=== PATIENT | male | born 1985 | race Caucasian/White ===

== ENCOUNTER 2016-05-20 15:54 | Emergency (ER) | payer OTHER ==
[~2016-05-20] VITALS: Ht 170.1 cm; Wt 74.8 kg
[~2016-05-20 15:54] MED LIST: AMBIEN10 M1 PO; AMOXICILLIN500 MG PO; ATARAX,VISTARIL50 MG PO; ATARAX25 MG PO; AUGMENTIN 875 M1 TAB PO; AUGMENTIN 875875 MG PO; CARBIDOPA/LEVOD1 TA1 PO; CATAFLAM50 MG PO; CLEOCIN HCL150 MG PO; CLINDAMYCIN HC300 MG PO; CLINDAMYCIN150 MG PO; CLINDAMYCIN300 MG PO; Cleocin150 MG PO; DAYPRO600 M1 PO; ELIMITE 5%60 GM PO; FLAGYL500 MG PO; HYDROCODONE BIT1 T11 PO; IBU-8800 MG PO; KEFLEX500 MG PO; LIDEX0.05% T; MEDROL DOSEPAK4 MG PO; MOTRIN800 MG PO; NAPROSYN500 MG PO; NKHM; PEN-VEE K500 MG PO; PENICILLIN V500 MG PO; PENICILLIN VK500 MG PO; PERCOCET 325 MG1 TA2 PO; PREDNISONE20 MG PO; SKELAXIN800 MG PO; TOBRADEX 0.1%-0.5 ML OPH; TRAMADOL HCL50 MG PO; TRAMADOL50 MG PO; TRAZODONE50 MG PO; ULTRAM50 MG PO; VICODIN 5/500 505 MG PO; VICODIN 500 MG-1 TAB PO; ZITHROMAX250 MG PO
[2016-05-20] MEDS ORDERED: PROAIR HFA8.5 GM INH (17:16)
== END 2016-05-20 17:38 | disposition home or self-care (01) ==
LOC: ED 15:54
DX: R05 Cough (principal); F12.10 Cannabis abuse, uncomplicated; F17.200 Nicotine dependence, unspecified, uncomplicated; Z88.1 Allergy status to other antibiotic agents; Z91.013 Allergy to seafood

== ENCOUNTER 2016-08-22 16:40 | Emergency (ER) | payer OTHER ==
[~2016-08-22] VITALS: Ht 170.1 cm; Wt 72.6 kg
[~2016-08-22 16:40] MED LIST changes: +PROAIR HFA8.5 GM INH
[2016-08-22] MEDS ORDERED: BUPRENORPHINE HY8 MG SL (16:53)
[2016-08-22] MEDS ORDERED: BACTRIM DS 8001 TA1 PO (18:01)
[2016-08-22] MEDS ORDERED: CLINDAMYCIN HC300 MG PO (18:09)
== END 2016-08-22 18:05 | disposition home or self-care (01) ==
LOC: ED 16:40
DX: S91.114A Laceration without foreign body of right lesser toe(s) without damage to nail, initial encounter (principal); F17.200 Nicotine dependence, unspecified, uncomplicated; Z88.1 Allergy status to other antibiotic agents; Z91.013 Allergy to seafood; W22.8XXA Striking against or struck by other objects, initial encounter; Y93.9 Activity, unspecified; Y92.9 Unspecified place or not applicable; Y99.9 Unspecified external cause status

== ENCOUNTER 2016-10-10 10:45 | Inpatient (IN) | payer OTHER ==
[~2016-10-10] VITALS: Ht 170.1 cm; Wt 70.8 kg
[~2016-10-10 10:45] MED LIST changes: +BACTRIM DS 8001 TA1 PO; +BUPRENORPHINE HY8 MG SL
[2016-10-10 12:00] VITALS: BP 104/64
[2016-10-10 12:46] LABS: BILIRUBIN NEGATIVE (NEGATIVE); BLOOD NEGATIVE (NEGATIVE); CLARITY CLEAR (CLEAR); COLOR YELLOW (YELLOW); GLUCOSE NEGATIVE (NEGATIVE); KETONE NEGATIVE (NEGATIVE); LEUKO ESTERASE NEGATIVE (NEGATIVE); NITRITE NEGATIVE (NEGATIVE); PH 6.5 (5.0-9.0); PROTEIN NEGATIVE (NEGATIVE); UROBILINOGEN 0.2 E.U./dl (0.2-1.0)
[2016-10-10 12:48] LABS: BASO % 0.4 % (0.0-1.0); EOS # 0.1 10*3/uL (0.0-0.4); EOS % 1.1 % (1.0-4.0); HEMATOCRIT 44.6 % (42.0-52.0); HEMOGLOBIN 14.9 g/dl (14.0-18.0); IG # 0.1 10*3/uL (0.0-0.1); LYMPH # 2.2 10*3/uL (1.3-4.4); LYMPH % 24.4 % (27.0-41.0); MEAN CELL VOLUME 88.8 fl (80.0-94.0); MEAN CORPUSCULAR HGB 29.7 pg (27.0-31.0); MEAN CORPUSCULAR HGB CONC 33.4 g/dl (33.0-37.0); MEAN PLATELET VOLUME 9.2 fl (9.6-12.3); MONO # 0.5 10*3/uL (0.1-1.0); MONO % 5.6 % (3.0-9.0); NEUT # 6.1 10*3/uL (2.3-7.9); NEUT % 67.8 % (47.0-73.0); PLATELET COUNT AUTOMATED 296 10*3/uL (130-400); RED BLOOD COUNT 5.02 10*6/uL (4.50-5.90); RED CELL DISTRI WIDTH 13.7 % (0-14.5); WHITE BLOOD COUNT 9.1 10*3/uL (4.8-10.8)
[2016-10-10 12:54] LABS: URINE AMPHETAMINES < 1000 (1000ng/ml); URINE BARBITURATES < 200 (200ng/ml); URINE COCAINE > 300 (300ng/ml)
[2016-10-10 12:55] LABS: PROTHROMBIN TIME 10.7 SECONDS (9.0-12.4)
[2016-10-10 13:01] LABS: BACTERIA 1+; MUCOUS 2+; RBC 0-2 rbc/hpf (0-2); URINE REFLEX COMMENT NO (NO)
[2016-10-10 13:04] LABS: ALBUMIN 3.6 gm/dl (3.1-4.5); ALKALINE PHOSPHATASE 72 U/L (45-117); BILIRUBIN, TOTAL 0.3 mg/dl (0.2-1.0); BUN 15 mg/dl (7-24); CARBON DIOXIDE 27 mmol/L (21-32); CHLORIDE 104 mmol/L (98-107); EST GLOM FILT AFRICAN AMERICAN > 60 ml/min; GLUCOSE 90 mg/dL (65-99); POTASSIUM 4.6 mmol/L (3.5-5.1); SGOT/AST 20 IU/L (3-35); SGPT/ALT 22 U/L (12-78); SODIUM 137 mmol/L (136-145); TOTAL PROTEIN 8.3 gm/dL (6.4-8.2)
[2016-10-10 16:00] VITALS: BP 115/66
[2016-10-10 20:00] VITALS: BP 114/76
[2016-10-11 00:01] VITALS: BP 134/68
[2016-10-11 08:00] VITALS: BP 100/52
[2016-10-11 12:00] VITALS: BP 112/68
== END 2016-10-11 14:10 | disposition left against medical advice (07) | DRG 894 ==
LOC: 4E 10:45
PROVIDERS: Internal Medicine Hospice and Palliative Medicine
DX: F11.23 Opioid dependence with withdrawal (principal); F14.10 Cocaine abuse, uncomplicated; F41.0 Panic disorder [episodic paroxysmal anxiety]; G25.81 Restless legs syndrome; F17.210 Nicotine dependence, cigarettes, uncomplicated; F12.10 Cannabis abuse, uncomplicated; K02.9 Dental caries, unspecified; Z71.6 Tobacco abuse counseling; Z88.8 Allergy status to other drugs, medicaments and biological substances; Z91.013 Allergy to seafood

== ENCOUNTER 2016-12-06 19:40 | Emergency (ER) | payer OTHER ==
[~2016-12-06] VITALS: Ht 172.7 cm; Wt 70.3 kg
[2016-12-06 20:13] LABS: BASO % 0.4 % (0.0-1.0); EOS # 0.2 10*3/uL (0.0-0.4); EOS % 2.4 % (1.0-4.0); HEMATOCRIT 41.2 % (42.0-52.0); LYMPH # 2.6 10*3/uL (1.3-4.4); LYMPH % 26.2 % (27.0-41.0); MEAN CELL VOLUME 85.5 fl (80.0-94.0); MEAN PLATELET VOLUME 9.8 fl (9.6-12.3); MONO # 0.8 10*3/uL (0.1-1.0); MONO % 8.1 % (3.0-9.0); NEUT # 6.1 10*3/uL (2.3-7.9); NEUT % 62.5 % (47.0-73.0); PLATELET COUNT AUTOMATED 222 10*3/uL (130-400); RED BLOOD COUNT 4.82 10*6/uL (4.50-5.90); RED CELL DISTRI WIDTH 13.9 % (0-14.5); WHITE BLOOD COUNT 9.7 10*3/uL (4.8-10.8)
[2016-12-06 20:27] LABS: ALBUMIN 3.5 gm/dl (3.1-4.5); ALKALINE PHOSPHATASE 75 U/L (45-117); BILIRUBIN, TOTAL 0.3 mg/dl (0.2-1.0); BUN 13 mg/dl (7-24); C-REACTIVE PROTEIN 4.07 MG/DL (0-0.3); CARBON DIOXIDE 26 mmol/L (21-32); CHLORIDE 102 mmol/L (98-107); EST GLOM FILT AFRICAN AMERICAN > 60 ml/min; GLUCOSE 120 mg/dL (65-99); POTASSIUM 3.9 mmol/L (3.5-5.1); SGOT/AST 19 IU/L (3-35); SGPT/ALT 32 U/L (12-78); SODIUM 135 mmol/L (136-145); TOTAL PROTEIN 7.8 gm/dL (6.4-8.2)
[2016-12-06 21:42] LABS: URINE AMPHETAMINES < 1000 (1000ng/ml); URINE BARBITURATES < 200 (200ng/ml); URINE COCAINE < 300 (300ng/ml)
[2016-12-06] MEDS ORDERED: PREDNISONE50 MG PO (21:58)
[2016-12-06] MEDS ORDERED: CLINDAMYCIN150 MG PO (22:01)
== END 2016-12-06 22:23 | disposition home or self-care (01) ==
LOC: ED 19:40
PROVIDERS: Student in an Organized Health Care Education/Training Program
DX: T78.40XA Allergy, unspecified, initial encounter (principal); F14.20 Cocaine dependence, uncomplicated; F12.10 Cannabis abuse, uncomplicated; F11.10 Opioid abuse, uncomplicated; F17.200 Nicotine dependence, unspecified, uncomplicated; Z88.1 Allergy status to other antibiotic agents; Z91.013 Allergy to seafood; X58.XXXA Exposure to other specified factors, initial encounter

== ENCOUNTER 2017-02-19 08:02 | Emergency (ER) | payer OTHER ==
[~2017-02-19] VITALS: Ht 167.6 cm; Wt 74.8 kg
[~2017-02-19 08:02] MED LIST changes: +PREDNISONE50 MG PO
== END 2017-02-19 09:36 | disposition home or self-care (01) ==
LOC: ED 08:02
DX: L05.01 Pilonidal cyst with abscess (principal); F17.200 Nicotine dependence, unspecified, uncomplicated; F11.10 Opioid abuse, uncomplicated; F12.10 Cannabis abuse, uncomplicated; F14.10 Cocaine abuse, uncomplicated; Z79.899 Other long term (current) drug therapy; Z88.8 Allergy status to other drugs, medicaments and biological substances; Z91.013 Allergy to seafood

== ENCOUNTER 2018-04-07 06:41 | Emergency (ER) | payer OTHER ==
[~2018-04-07] VITALS: Ht 170.1 cm; Wt 81.6 kg
[2018-04-07] MEDS ORDERED: PENICILLIN-VK500 M1 PO (06:56)
[2018-04-08] MEDS ORDERED: ZOFRAN4 MG PO (09:34)
[2018-04-08] MEDS ORDERED: CLINDAMYCIN150 MG PO (09:34)
[2018-04-08] MEDS ORDERED: NAPROSYN500 MG PO (09:34)
[2018-04-08] MEDS ORDERED: Peridex 473 ML473 ML PO (09:34)
== END 2018-04-07 07:07 | disposition home or self-care (01) ==
LOC: ED 06:41
DX: K04.01 Reversible pulpitis (principal); F17.200 Nicotine dependence, unspecified, uncomplicated; Z88.1 Allergy status to other antibiotic agents; Z91.013 Allergy to seafood

== ENCOUNTER 2018-04-08 09:26 | Emergency (ER) | payer OTHER ==
[~2018-04-08] VITALS: Ht 172.7 cm; Wt 81.6 kg
[~2018-04-08 09:26] MED LIST changes: +PENICILLIN-VK500 M1 PO
[2018-04-08] MEDS ORDERED: ZOFRAN4 MG PO (09:34)
[2018-04-08] MEDS ORDERED: NAPROSYN500 MG PO (09:34)
[2018-04-08] MEDS ORDERED: CLINDAMYCIN150 MG PO (09:34)
[2018-04-08] MEDS ORDERED: Peridex 473 ML473 ML PO (09:34)
== END 2018-04-08 09:52 | disposition home or self-care (01) ==
LOC: ED 09:26
DX: K04.7 Periapical abscess without sinus (principal); F17.200 Nicotine dependence, unspecified, uncomplicated; Z88.1 Allergy status to other antibiotic agents; Z91.013 Allergy to seafood

== ENCOUNTER 2019-02-14 10:49 | Emergency (ER) | payer OTHER ==
[~2019-02-14] VITALS: Ht 172.7 cm; Wt 83.9 kg
[~2019-02-14 10:49] MED LIST changes: +Peridex 473 ML473 ML PO; +ZOFRAN4 MG PO
[2019-02-14 14:13] LABS: BILIRUBIN NEGATIVE (NEGATIVE); BLOOD TRACE-LYSED (NEGATIVE); CLARITY CLEAR (CLEAR); COLOR YELLOW (YELLOW); GLUCOSE NEGATIVE (NEGATIVE); KETONE NEGATIVE (NEGATIVE); LEUKO ESTERASE NEGATIVE (NEGATIVE); NITRITE NEGATIVE (NEGATIVE); PH 5.5 (5.0-9.0); SPECIFIC GRAVITY >= 1.030 (1.005-1.030); UROBILINOGEN 0.2 E.U./dl (0.2-1.0)
[2019-02-14 14:28] LABS: BACTERIA 1+; MUCOUS 4+
== END 2019-02-14 14:36 | disposition home or self-care (01) ==
LOC: ED 10:49
PROVIDERS: Emergency Medicine
DX: T40.1X1A Poisoning by heroin, accidental (unintentional), initial encounter (principal); R40.20 Unspecified coma; R51 Headache; F14.10 Cocaine abuse, uncomplicated; F12.10 Cannabis abuse, uncomplicated; F17.200 Nicotine dependence, unspecified, uncomplicated; Y92.098 Other place in other non-institutional residence as the place of occurrence of the external cause; Z88.1 Allergy status to other antibiotic agents; Z91.013 Allergy to seafood; Z79.899 Other long term (current) drug therapy; Z79.2 Long term (current) use of antibiotics

== ENCOUNTER 2019-02-18 12:20 | Emergency (ER) | payer OTHER ==
[~2019-02-18] VITALS: Ht 172.7 cm; Wt 81.6 kg
== END 2019-02-18 12:35 | disposition left against medical advice (07) ==
LOC: ED 12:20
DX: T40.1X1A Poisoning by heroin, accidental (unintentional), initial encounter (principal); F17.200 Nicotine dependence, unspecified, uncomplicated; Z88.1 Allergy status to other antibiotic agents; Z91.013 Allergy to seafood; Y92.89 Other specified places as the place of occurrence of the external cause

== ENCOUNTER 2020-09-03 19:00 | Emergency (ER) | payer OTHER ==
[~2020-09-03] VITALS: Ht 170.1 cm; Wt 83.9 kg
== END 2020-09-03 21:57 | disposition home or self-care (01) ==
LOC: ED 19:00
DX: S93.401A Sprain of unspecified ligament of right ankle, initial encounter (principal); Z88.8 Allergy status to other drugs, medicaments and biological substances; Z79.899 Other long term (current) drug therapy; Z91.013 Allergy to seafood; X58.XXXA Exposure to other specified factors, initial encounter; Y93.89 Activity, other specified; Y92.89 Other specified places as the place of occurrence of the external cause; Y99.8 Other external cause status

== ENCOUNTER 2023-09-01 11:47 | Emergency (ER) | payer OTHER ==
[2023-09-01] MEDS ORDERED: IBUPROFEN 600 MG TAB PO ONE (12:35)
[2023-09-01] MEDS ORDERED: Tdap Vaccine 0.5 ML SYR (Adult Vaccine) IM ONE (12:35)
== END 2023-09-01 12:49 | disposition home or self-care (01) ==
LOC: ED 11:47
DX: S01.01XA Laceration without foreign body of scalp, initial encounter (principal); Z91.013 Allergy to seafood; Z88.8 Allergy status to other drugs, medicaments and biological substances; F17.200 Nicotine dependence, unspecified, uncomplicated; F12.90 Cannabis use, unspecified, uncomplicated; F19.90 Other psychoactive substance use, unspecified, uncomplicated; W22.8XXA Striking against or struck by other objects, initial encounter; Y93.89 Activity, other specified; Y92.89 Other specified places as the place of occurrence of the external cause; Y99.8 Other external cause status

== ENCOUNTER 2023-09-12 16:57 | Emergency (ER) | payer OTHER ==
[~2023-09-12] VITALS: Wt 81.6 kg
== END 2023-09-12 17:24 | disposition home or self-care (01) ==
LOC: ED 16:57
DX: S01.01XD Laceration without foreign body of scalp, subsequent encounter (principal); Z91.013 Allergy to seafood; Z88.8 Allergy status to other drugs, medicaments and biological substances; Z98.890 Other specified postprocedural states; F12.90 Cannabis use, unspecified, uncomplicated; F17.200 Nicotine dependence, unspecified, uncomplicated; W22.8XXD Striking against or struck by other objects, subsequent encounter

== ENCOUNTER 2023-11-17 22:57 | Emergency (ER) | payer OTHER ==
[~2023-11-17] VITALS: Ht 172.7 cm; Wt 69.9 kg
== END 2023-11-18 01:43 | disposition left against medical advice (07) ==
LOC: ED 22:57
DX: S01.312A Laceration without foreign body of left ear, initial encounter (principal); F12.90 Cannabis use, unspecified, uncomplicated; F17.200 Nicotine dependence, unspecified, uncomplicated; F19.10 Other psychoactive substance abuse, uncomplicated; Z53.29 Procedure and treatment not carried out because of patient's decision for other reasons; Z91.013 Allergy to seafood; Z88.8 Allergy status to other drugs, medicaments and biological substances; Y08.89XA Assault by other specified means, initial encounter; Y93.89 Activity, other specified; Y92.89 Other specified places as the place of occurrence of the external cause; Y99.8 Other external cause status